=== PATIENT | female | born 1980 | race Caucasian/White ===

== ENCOUNTER 2017-01-15 09:07 | Day surgery (SDC) | payer OTHER ==
[2017-01-12 14:08] VITALS: BMI 42.0
[2017-01-15 09:39] LABS: BASOPHIL 0.8 % (0-2.0); EOSINOPHIL 4.1 % (0-4.5); MCH 26.5 pg (25.7-33.7); MCHC 33.1 g/dl (32.0-36.0); MEAN CELL VOLUME 80.2 fl (80-96); MEAN PLT VOLUME 7.8 fl (7.5-11.1); NEUTROPHILS 59.2 % (42.8-82.8); PLATELET COUNT 247 K/MM3 (134-434); RDW 16.4 % (11.6-15.6); WHITE BLOOD COUNT 8.4 K/mm3 (4.0-10.0)
[2017-01-15 10:18] LABS: PROTHROMBIN TIME (PATIENT) 11.3 SEC (9.98-11.88)
[2017-01-15 14:46] LABS: GLUCOSE,CSF 55 mg/dL (50-80)
[2017-01-15 14:50] LABS: CSF APPEARANCE CLEAR; CSF COLOR COLORLESS
[2017-01-15 17:50] VITALS: BP 130/78; PULSE 66; TEMP 97.6
== END 2017-01-15 17:30 | disposition home or self-care (01) ==
LOC: JRADIR 09:07
PROVIDERS: ATTEND Psychiatry & Neurology Neurology
PROC: 009U3ZX Drainage of Spinal Canal, Percutaneous Approach, Diagnostic (ICD-10-PCS; principal; 2017-01-15)
PROC: B01BYZZ Fluoroscopy of Spinal Cord using Other Contrast (ICD-10-PCS; 2017-01-15)
DX: R51 Headache (principal)
CPT/HCPCS: 36415; 62272; 76000-TC; 76098-TC; 82945; 84157; 84703; 85025; 85610; 87899; 89050